=== PATIENT | male | born 1970 | race Caucasian/White ===

== ENCOUNTER → 2016-11-06 | Outpatient (CLI) | payer BC ==
[2016-11-06 14:42] LABS: BASOPHILS # (AUTO) 0.03 10*3/UL; BASOPHILS % (AUTO) 0.4 % (0-1); EOSINOPHILS # (AUTO) 0.17 10*3/UL; EOSINOPHILS % (AUTO) 2.1 % (0-8); HEMATOCRIT 38.4 % (42.0-52.0); HEMOGLOBIN 13.1 g/dL (14.0-18.0); LYMPHOCYTES # (AUTO) 0.67 10*3/uL; MEAN CORPUSCULAR HGB CONC 34.1 g/dL (33-37); MEAN CORPUSCULAR VOLUME 88.1 FL (80-90); MEAN PLATELET VOLUME 10.5 FL (7.4-12.2); MONOCYTES # (AUTO) 0.88 10*3/UL (0.3-0.8); MONOCYTES % (AUTO) 10.9 % (5-15); NEUTROPHILS % (AUTO) 77.6 % (50-80); RED BLOOD COUNT 4.36 10^6/uL (4.70-6.10)
[2016-11-06 14:45] LABS: MAGNESIUM 1.8 mg/dL (1.6-2.4); PLATELET MORPHOLOGY COMMENT NORMAL MORPHOLOGY (NORM); RBC MORPHOLOGY COMMENT NORMAL MORPHOLOGY (NORM); WBC MORPHOLOGY COMMENT NORMAL MORPHOLOGY (NORM)
[2016-11-06 14:45] LABS: BLOOD UREA NITROGEN 8 mg/dL (7-22); CALCIUM 9.5 mg/dL (8.7-10.7); CHOL/HDL RATIO 5.47 RATIO (0-4.0); EST GLOMERULAR FILTRATION > 60 (>60 ml/min/1.73m(2)); HDL CHOLESTEROL 36 mg/dL (40-150); SERUM ALBUMIN 4.2 g/dL (3.5-4.8); SERUM CHOLESTEROL 197 mg/dL (120-200)
[2016-11-06 15:09] LABS: LIPASE 3171 IU/L (23-300)
--- NOTE | 2016-11-07 11:46 | EKG ---
[facility] [place] Measurements Intervals [place] Rate: 77 P: 51 NE: 185 QRS: 32 QRSD: 94 T: 33 QT: 373 QTc: 405 Interpretive Statements SINUS RHYTHM [id number]
== END ==
LOC: EKG 11:57
PROVIDERS: ATTEND Physician Assistant Medical
DX: K86.0 Alcohol-induced chronic pancreatitis (principal); R07.9 Chest pain, unspecified; E55.9 Vitamin D deficiency, unspecified; E83.42 Hypomagnesemia; K21.0 Gastro-esophageal reflux disease with esophagitis; R51 Headache
CPT/HCPCS: 80053; 80061; 82150; 82306; 83690; 83735; 85025; 93005; 93010

== ENCOUNTER 2018-04-02 08:01 | Inpatient (IN) ==
[2018-04-02] MEDS ORDERED: Sodium Chloride 0.9% 1,000 ML PRIMARY IV ONE (08:21)
[2018-04-02] MEDS ORDERED: FAMOTIDINE 20 MG/2 ML VIAL IVP ONE (08:21)
[2018-04-02] MEDS ORDERED: ONDANSETRON 4 MG/2 ML VIAL IVP ONE (08:21)
[2018-04-02] MEDS ORDERED: HYDROmorphone 2 MG/1 ML IVP ONE (08:23)
--- NOTE | 2018-04-02 08:27 | EKG ---
[address] [address] Measurements Intervals [place] Rate: 71 P: 50 NC: 191 QRS: 41 QRSD: 83 T: 37 QT: 379 QTc: 402 Interpretive Statements SINUS RHYTHM Compared to ECG 11/06/2016 10:11:05 No significant changes Electronically Signed On 04-02-18 12:22:03 MST by Yaron Stovall [id number]
[2018-04-02 08:30] LABS: BASOPHILS # (AUTO) 0.02 10*3/UL; BASOPHILS % (AUTO) 0.2 % (0-1); EOSINOPHILS # (AUTO) 0.16 10*3/UL; EOSINOPHILS % (AUTO) 1.4 % (0-8); Hematocrit [HCT] 38.7 % (42.0-52.0); Hemoglobin [HGB] 13.4 g/dL (14.0-18.0); LYMPHOCYTES # (AUTO) 0.76 10*3/uL; MEAN CORPUSCULAR HEMOGLOBIN 30.5 PG (27-31); MEAN CORPUSCULAR HGB CONC 34.6 g/dL (33-37); MEAN CORPUSCULAR VOLUME 88.2 FL (80-90); MEAN PLATELET VOLUME 10.5 FL (7.4-12.2); MONOCYTES # (AUTO) 1.14 10*3/UL (0.3-0.8); NEUTROPHILS # (AUTO) 9.31 10*3/UL; NEUTROPHILS % (AUTO) 81.4 % (50-80); RED BLOOD COUNT 4.39 10^6/uL (4.70-6.10)
[2018-04-02 08:53] LABS: BLOOD UREA NITROGEN 11 mg/dL (7-22); BUN/CREATININE RATIO 15.71 (6-20); SERUM ALBUMIN 4.7 g/dL (3.5-4.8)
[2018-04-02 08:54] LABS: PLATELET MORPHOLOGY COMMENT NORMAL MORPHOLOGY (NORM); RBC MORPHOLOGY COMMENT NORMAL MORPHOLOGY (NORM); WBC MORPHOLOGY COMMENT NORMAL MORPHOLOGY (NORM)
[2018-04-02 09:07] LABS: LIPASE 1427 IU/L (23-300)
--- NOTE | 2018-04-02 09:39 | PDOC ---
Abdomen/Flank HPI - General Chief Complaint: Abdomen Pain Stated Complaint: abd pain/ vomiting Date Seen by Provider: 04/02/18 Time Seen by Provider: 08:15 Source: POSITIVE: Patient Exam Limitations: POSITIVE: No limitations Nurse's Notes Reviewed & Considered: Yes - History of Present Illness Initial Comments: The patient is a 47-year-old male who presents to the emergency room with a five-day history of diffuse abdominal pain and vomiting. He states he feels "dehydrated". Patient had arthroscopic surgery to his right knee 5 days ago and states that his symptoms began shortly thereafter. No known fevers. No hematemesis. No melena or hematochezia. No dysuria or hematuria. Patient states that he has a history of recurring pancreatitis and has had "pancreatic stones" removed by ERCP. He states that he "drinks a few times a week with meals". He has had pancreatic stenting procedures in the past. No fevers or c hills. He states his present pain is similar to what he is had with his previous episodes pancreatitis. He does state he has some radiation of his discomfort into his chest. Body Location Affected: REPORTS: Chest, Abdomen Timing: REPORTS: Constant Duration: >24 hours (Reportedly 5 days) Severity: Moderate Quality: REPORTS: "Pain" Abdominal Pain Onset Location: REPORTS: Generalized abdomen Abdominal Pain Radiation: REPORTS: Chest. DENIES: No radiation Context: REPORTS: Other (Patient reports onset of his pain was following arthroscopic surgery of his right knee) Modifying Factors: improves with: Vomiting ("Dry heaves") Associated Symptoms: REPORTS: Nausea, Vomiting, Other (Poorly localized diffuse abdominal pain) Similar Symptoms Previously: Yes (as above) Recent Care Received: REPORTS: Recently Seen, Treated by MD, Surgery (As above) Any Prior Injuries Related to Current Complaint?: No - Patient Home Medications Home Medications: Home Medications Lipase/Protease/Amylase [Zenpep Dr 20,000 Unit Capsule] 2 cap PO TID #180 cap 11/06/16 Omeprazole 1 cap PO BID cap 11/06/16 colchicine 0.6 mg capsule 0.6 mg PO BID #60 cap 05/07/17 indomethacin 50 mg capsule 50 mg PO BID #60 cap 05/07/17 HYDROcodone/APAP 7.5/325 Tab [[place] 7.5/325 Tab] 1 - 2 tab PO Q4H PRN #40 tab 03/27/18 - Patient Allergies Allergies/Adverse Reactions: Allergies Allergy/AdvReac Type Severity Reaction Status Date / Time No Known Allergies Allergy Verified 04/02/18 08:57 Past Medical History - heen HEENT History: Denies History, Other (please comment) Additional HEENT History: glassess Cardiovascular History: Denies History, Hyperlipidemia Respiratory History: Denies History Gastrointestinal History: Pancreatitis, Other (please comment) Additional Gastrointestinal History: Problems with GI after pancreatitis. LUCERO ESOPHAGUS Genitourinary History: Denies History Endocrine History: Denies History Musculoskeletal History: Arthritis, Gout Prosthesis or Implant: Yes (metal plate to right wrist) Neurological History: Migraines Blood Disorders: Denies History Psychiatric History: Denies History, Anxiety Disorders History of Sexually Transmitted Diseases: No Cancer History: Skin, Other (please comment) In Past Year Been Physically Harmed or Verbally Threatened: No History of MDRO: No History of Other Communicable Diseases: No Tobacco Use: Former Smoker In the Past 12 Months, Have Used or Abuse Any Substance: None Previous Surgical History: Yes Type / Date of Surgery: Vasectomy. Colonoscopy. Right wrist. RIGHT KNEE SCOPE. PLACEMENT OF STENT IN PANCREATIC DUCT Anesthesia Reactions: No Malignant Hyperthermia: No Significant Family History: Heart disease, Cancer, Diabetes, Hypertension, Other (please comment) Additional Family History: Colon, Breast CA. Depression. Migraine Past Medical History Reviewed: Reviewed - No Changes ROS - Limitations ROS Limitations: No Limitations Constitution: REPORTS: Denies Symptoms Cardiovascular: REPORTS: Denies Cardiac Symptoms Respiratory: REPORTS: Denies Resp Symptoms Neurological: REPORTS: Denies Neuro Symptoms Gastrointestinal: REPORTS: Abdominal Pain, Nausea, Vomitting Endocrine: REPORTS: Denies Symptoms Musculoskeletal: REPORTS: Denies MS Symptoms Genitourinary: REPORTS: Denies Symptoms Eyes: REPORTS: Denies Symptoms ENT: REPORTS: Denies Symptoms Skin: REPORTS: Denies Skin Symptoms Lympathic: REPORTS: Denies Lympathic Symptoms Immunologic: POSITIVE: Denies Symptoms Psychiatric: POSITIVE: Denies Psych Symptoms Abdominal/Flank Pain PE - General Appearance General Appearance: POSITIVE: Alert, Cooperative, No Acute Distress, No Evidence of Trauma - HEENT HEENT: POSITIVE: Head Inspection Nml, Eyes Inspection Nml, Ears Inspection Nml, Nose Inspection Nml, Oral/Dental Inspect. Nml, Pharynx Inspect. Nml, PERRL, EOMI - Neck Neck: POSITIVE: Normal Inspection, No Apparent Injury - Respiratory Respiratory: POSITIVE: No Respiratory Distress, Breath Sounds Normal, Chest Non- Tender - Cardiovascular Cardiovascular: POSITIVE: Regular Rate and Rhythm, Heart Sounds Normal, Equal Pulses, Strong Pulses Peripheral Pulses: Radial (R): 2+, Radial (L): 2+ - Abdomen Abdomen: No Splenomegaly: (All Quadrants), No Hepatomegaly: (All Quadrants), No Guarding: (All Quadrants), No Rebound: (All Quadrants), No Palpable Pulse: (All Quadrants), No Palpabale Mass: (All Quadrants), No Distention: (All Quadrants), No Rigidity: (All Quadrants), Tenderness Noted: (RUQ), (LUQ), (RLQ), (LLQ), Hypoactive Bowel Sounds: (RUQ), (LUQ), (RLQ), (LLQ) Additional Abdominal Details: Abdominal examination shows bowel sounds are present, but hypoactive. Patient complains of pain on palpation diffusely over the abdomen with no localization. No masses, organomegaly or rebound. - Back Back: POSITIVE: Normal Inspection. 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 Cisse at 0945 Lab Results Reviewed by Me: Yes (amylase and lipase elevated; troponin negative; UA pending) CBC and BMP: 04/02/18 08:25 04/02/18 08:25 Lab Results:: Laboratory Results 04/02/18 04/02/18 04/02/18 08:25 08:25 08:25 WBC 11.42 H RBC 4.39 L Hgb 13.4 L Hct 38.7 L MCV 88.2 MCH 30.5 MCHC 34.6 RDW Std Deviation 40.2 RDW Coeff of Jose 12.8 Plt Count 176 MPV 10.5 Immature Gran % (Auto) 0.3 Neut % (Auto) 81.4 H Lymph % (Auto) 6.7 L Atkinson % (Auto) 10.0 Eos % (Auto) 1.4 Baso % (Auto) 0.2 Immature Gran # (Auto) 0.03 Neut # (Auto) 9.31 Lymph # (Auto) 0.76 Atkinson # (Auto) 1.14 H Eos # (Auto) 0.16 Baso # (Auto) 0.02 WBC Morphology Comment Normal morphology Plt Morphology Comment Normal morphology RBC Morph Comment Normal morphology Sodium Potassium Chloride Carbon Dioxide Anion Gap BUN Creatinine Estimated GFR BUN/Creatinine Ratio Glucose Calculated Osmolality Calcium Total Bilirubin AST ALT Alkaline Phosphatase Troponin I < 0.012 C-Reactive Protein 5.9 H Total Protein Albumin Globulin Albumin/Globulin Ratio Amylase Lipase 04/02/18 08:25 WBC RBC Hgb Hct MCV MCH MCHC RDW Std Deviation RDW Coeff of Jose Plt Count MPV Immature Gran % (Auto) Neut % (Auto) Lymph % (Auto) Atkinson % (Auto) Eos % (Auto) Baso % (Auto) Immature Gran # (Auto) Neut # (Auto) Lymph # (Auto) Atkinson # (Auto) Eos # (Auto) Baso # (Auto) WBC Morphology Comment Plt Morphology Comment RBC Morph Comment Sodium 132 L Potassium 4.2 Chloride 94 L Carbon Dioxide 28 Anion Gap 10 BUN 11 Creatinine 0.7 Estimated GFR > 60 BUN/Creatinine Ratio 15.71 Glucose 195 H Calculated Osmolality 277.0 Calcium 9.5 Total Bilirubin 0.7 AST 34 ALT 24 Alkaline Phosphatase 84 Troponin I C-Reactive Protein Total Protein 8.3 H Albumin 4.7 Globulin 3.6 Albumin/Globulin Ratio 1.30 Amylase 114 H Lipase 1427 H* EKG Interpreted/Reviewed By Me:: Yes (normal) EKG Interpretation:: POSITIVE: Normal Sinus Rhythm, Normal Rate, Normal Intervals, Normal [place], Normal QRS, Abnormal EKG - Patient's Progress Pain Medication Addressed: POSITIVE: Yes (Patient medicated with Dilaudid 2 mg IV and was also given famotidine and Zofran IV and was hydrated. Upon reevaluation at 0930, patient states he feels much better knees no longer nauseated) Re-examine Time: 09:30 Re-Examine Comment: Patient states his pain is much less after hydration with normal saline and medication with 2 mg of Dilaudid, famotidine and Zofran IV. Patient has not yet had his CT scan of the abdomen and pelvis with IV contrast and urinalysis is pending. Care transferred at [address] Cisse, who comes on duty at 0900 Status: POSITIVE: Improved, Re-Examined - Consult Counseled: POSITIVE: Patient, RE: Lab Results, RE: DX, RE: Need for F/U Patient Care Time - Estimated PCT Patient Care Time (In Minutes): 45 Vital Signs - Recent Vital Signs Vital Signs: Vital Signs (Last 8 hours) Temp Pulse Resp BP Pulse Ox 04/02/18 08:22 97.9 F 86 20 144/100 97 - VS Reviewed Vital Signs Reviewed: Yes Discharge Clinical Impression: Abdominal pain Discharge Disposition: Other (Care transferred to Dr. Cisse [id number]) Condition: Fair Follow Up With: PRERNA GERBER [Primary Care Provider] - Care Transferred To: Dr. Cisse at 0930
[2018-04-02 10:18] LABS: BILIRUBIN,URINE NEGATIVE (NEG); CLARITY,URINE CLEAR (CLEAR); COLOR,URINE YELLOW (Y); GLUCOSE, URINE (UA) NEGATIVE (NEG); PH,URINE 6.5 (5.0-8.5); PROTEIN,URINE NEGATIVE (NEG); UROBILINOGEN,URINE 0.2 EU/dL (0.2)
[2018-04-02 10:19] LABS: OCCULT BLOOD,URINE TRACE (NEG)
[2018-04-02 10:35] LABS: RBC,URINE 0 /hpf; URINE SAMPLE TYPE CLEAN CATCH URINE; WBC,URINE 0
--- NOTE | 2018-04-02 10:42 | DI ---
CT Abdomen/Pelvis W Contrast 04/02/2018 8:23 AM History: [facility] [place] Abdominal Pain Comparison: None. Technique: Imaging was performed with a multi-detector CT scanner. Data acquisition was obtained from the dome of the diaphragm through the pubic symphysis without oral contrast and after the uneventful administration of 75 mL of Isovue intravenous contrast material. Multiplanar reformations were perfo rmed. Findings: There is moderate pancreatic edema and peripancreatic fluid, consistent with acute pancreat itis. There is a 1.2 x 2.7 x 1.1 cm fluid collection in the pancreatic parenchyma. Differential consi derations include a dilated pancreatic duct versus pseudocyst. There are multiple coarse calcificatio ns in the pancreatic parenchyma with atrophy of the tail. These findings are commonly associated with chronic pancreatitis. Vascular structures are grossly intact There is normal CT appearance of the liver, gallbladder, adrenal glands, spleen, and kidneys. Hollow viscus organs demonstrate normal course and caliber. The appendix is unremarkable. There is no free i ntraperitoneal air or fluid. There are shotty upper mesenteric lymph nodes, not pathologically enlarg ed by CT size criteria. Vascular structures are intact with scattered atheromatous calcifications. Th ere is no inguinal or abdominal wall hernia. The lung bases are notable for bibasilar atelectasis without focal consolidation, pleural effusion, o r pneumothorax. There is a 4 mm pulmonary nodule in the anterior right upper lobe on series 2 image 1 . The heart size is within normal limits without pericardial effusion. The osseous structures are within normal limits for the patient's age with multilevel degenerative en dplate changes and bilateral unfused L1 transverse processes. Impression: 1. There is evidence of acute on chronic pancreatitis. A fluid collection within the pancreatic paren chyma may represent a dilated pancreatic duct versus pseudocyst. 2. There are shotty upper mesenteric lymph nodes, most likely reactive related to the acute pancreati tis. 3. There is a 4 mm pulmonary nodule in the right upper lobe. Fleischner Society 2017 guidelines for m anagement of incidentally detected pulmonary nodules is as follows: Single solid lung nodule less than 6 mm: Low risk: No routine follow-up. High risk: Optional CT at 12 months.
--- NOTE | 2018-04-02 11:24 | PDOC ---
HPI - History of Present Illness History of Present Illness: The patient is a 47-year-old male who presents to the emergency room with a five-day history of abdominal pain nausea /vomiting. he feels . Patient had arthroscopic surgery to his right knee 5 days ago and states that his symptoms began shortly after. had multiple episosedes of pancreatitis and was treated at the [facility] for it ,including previous stents. dilaudid really worked well for his pain Past Medical History Medical History: pancreatitis with stents Surgical History: R knee scope Tobacco Use: Former Smoker In the Past 12 Months, Have Used or Abuse Any of the Following Substance: None Alcohol Use: Rarely Medication / Allergies Home Medications: Home Medications Medication Instructions Recorded Confirmed Type Lipase/Protease/Amylase [Zenpep Dr 2 cap PO TID #180 cap 11/06/16 04/02/18 Rx 20,000 Unit Capsule] Omeprazole 1 cap PO BID cap 11/06/16 04/02/18 History colchicine 0.6 mg capsule 0.6 mg PO BID #60 cap 05/07/17 04/02/18 Rx indomethacin 50 mg capsule 50 mg PO BID #60 cap 05/07/17 04/02/18 Rx HYDROcodone/APAP 7.5/325 Tab 1 - 2 tab PO Q4H PRN #40 tab 03/27/18 04/02/18 Rx [[place] 7.5/325 Tab] Allergies/Adverse Reactions: Allergies Allergy/AdvReac Type Severity Reaction Status Date / Time No Known Allergies Allergy Verified 04/02/18 08:57 Review of Systems - Review of Systems All Systems: Reviewed & No Additional Complaints Except as Stated - Respiratory Respiratory: DENIES: Negative System Review, Cough, Sputum, Dyspnea At Rest, Dyspnea with Exertion, Pleuritic Pain, Hemoptysis, Wheezing, Other, See HPI - Cardiovascular Cardiovascular: DENIES: Negative System Review, Chest Pain, Edema, Syncope, Palpitations, Orthopnea, Paroxysmal Nocturnal Dyspnea, Other, See HPI - Gastrointestinal Gastrointestinal / Abdominal: REPORTS: Nausea, Vomiting, Abdominal Pain - Genitourinary Genitourinary: DENIES: Negative System Review, Pain, Burning, Hematuria, Incontinence, Urgency, Hesitant Stream, Decreased Stream, Nocutria, Discharge, Sexual Dysfunction, Other, See HPI Exam - Vitals Vital Signs: Vital Signs Temperature 97.9 F Temperature Source Temporal Artery Scan Pulse Rate [Pulse Oximeter 86 Right] Respiratory Rate 20 Blood Pressure [Left Arm] 144/100 Pulse Ox 97 Oxygen Delivery Method Room Air Height 5 ft 5 in Weight 155 lb - General General Appearance: No Acute Distress, Cooperative - Head Head Exam: Normal Inspection, Normocephalic, Atraumatic - Eye Eye Exam: POSITIVE: Normal Appearance, PERRL, EOMI, No Scleral Icterus - Respiratory Respiratory Exam: POSITIVE: Clear to Auscultation - Bilaterally, Breathing Non Labored, Normal To Percussion, Normal to Percussion and Palpation - Cardiovascular Cardiovascular Exam: POSITIVE: RRR, No Murmur, No Clicks, No Gallops, No Rubs, PMI Non-Displaced - GI/Abdominal GI/Abdominal Exam: POSITIVE: Soft Additional GI/Abdominal Exam Details: llq pain mild Results - Labs CBC and BMP: 04/02/18 08:25 04/02/18 08:25 Assessment and Plan - Patient Problems (1) Pancreatitis Current Visit: No Status: Chronic Comment: iv fluids ,iv dilaudid/npo MRI further plan according to results Code(s): K85.90 - Acute pancreatitis without necrosis or infection, unspecified
[2018-04-02] MEDS ORDERED: CALCIUM CARBONATE 500 MG (TUMS) CHEWABLE TABLET PO PRN (12:21)
[2018-04-02] MEDS ORDERED: LIDOCAINE W/ SODIUM BICARB 0.5 ML SYR SUBD PRN (12:21)
[2018-04-02] MEDS ORDERED: Lactated Ringers 1,000 ML PRIMARY IV SCH (12:21)
[2018-04-02] MEDS ORDERED: HYDROmorphone 2 MG/1 ML IVP PRN (12:21)
[2018-04-02] MEDS ORDERED: DOCUSATE 100 MG CAPSULE PO PRN (12:21)
[2018-04-02] MEDS ORDERED: ONDANSETRON 4 MG/2 ML VIAL IVP PRN (12:21)
--- NOTE | 2018-04-02 13:17 | DI ---
MRI Abdomen WO Contrast 04/02/2018 12:06 PM History: [facility] [place] ^N ^abd pain Technique: Multiplanar multi-sequential imaging of the abdomen was performed to include MRCP sequence s. Comparison: CT abdomen/pelvis from earlier the same day. Findings: Normal liver size and contour without mass. Signal dropout on opposed phase imaging is consistent wit h diffuse hepatic steatosis. Multiple filling defects in the dependent gallbladder consistent with gallstones. There is no gallbla dder wall thickening or pericholecystic fluid. The common bile duct is dilated at 8 mm with a 6 mm fi lling defect at the level of the ampulla. The cystic duct is within normal limits. Normal andreas hepat is. There is peripancreatic edema and fluid without formed fluid collection. The pancreatic duct is dilat ed with a "[place] lakes" morphology. The most dilated segment in the body is approximately 1.2 cm i n diameter and contains multiple filling defects, concerning for refluxed gallstones. Calcifications are noted in the pancreatic parenchyma. The distal pancreas is atrophic. Normal splenic size and contour. No masses. Normal adrenal glands. Normal right kidney size and contour. No masses, cysts, or hydronephrosis. Normal perinephric space. Normal left kidney size and contour. No masses, cysts, or hydronephrosis. Normal perinephric space. Normal abdominal aorta. Normal flow voids of the peripancreatic vessels without evidence of thrombosi s. Normal retroperitoneum without abnormally enlarged lymphadenopathy or inflammation. There is moderat e edema in the upper mesentery with several shotty lymph nodes, most likely reactive. No ascites. Normal abdominal wall structures with no demonstrated hernias. The lung bases are clear. Heart size i s within normal limits without pericardial effusion. Impression: 1. There is evidence of acute on chronic pancreatitis. The pancreatic duct is dilated up to 1.2 cm in the body, corresponding with the fluid collection noted on the recent CT. There are multiple stones in the duct At this level. This raises concern for refluxed gallstones. 2. Cholelithiasis. The common bile duct is dilated at 8 mm with a 6 mm filling defect at the level of the ampulla, concerning for a gallstone. 3. Edema and shotty lymph nodes in the upper mesentery, most likely reactive. 4. Diffuse hepatic steatosis. These findings were discussed telephonically with Dr. Blue of the internal medicine department at 131 5 hrs on the day of the exam.
--- NOTE | 2018-04-02 14:17 | DCSUMMARY ---
Hospitalization Summary Hospital Course: Please see my HPI admit and discharge within same day Exam - Vitals Vital Signs: Vital Signs Temperature 97.4 F Temperature Source Oral Pulse Rate [Pulse Oximeter 76 Right] Pulse Rate 57 Respiratory Rate 16 Blood Pressure [Right Arm] 111/73 Blood Pressure [Left Arm] 144/100 Blood Pressure 114/86 Pulse Ox 92 Oxygen Delivery Method Room Air Height 5 ft 5 in Weight 155 lb Patient Problems - Patient Problem List (1) Pancreatitis Current Visit: No Status: Chronic Code(s): K85.90 - Acute pancreatitis without necrosis or infection, unspecified Category: Medical
--- NOTE | 2018-04-02 14:33 | PDOC ---
Transfer of Care - Care Accepted Time Care Transferred: 09:15 Report from Transferring Physician Received: Yes (Dr. Henderson) MDM / ED Course: The patient is a 47-year-old male who had presented to the emergency department with a for 5 day history of generalized abdominal pain, nausea and vomiting. He has a history of recurrent pancreatitis and has had multiple procedures related to this in [place], the last one being in 2011. Shortly after having had a knee scope last week he had onset of current abdominal pain, nausea and vomiting. Please refer to Dr. Henderson's note for details of his initial presentation. The patient had been treated with Dilaudid as well as Zofran and a fluid bolus. By the time of my reevaluation the patient's pain was significantly improved and he was feeling better. His blood work had revealed a mildly elevated white count as well as an elevated lipase at 1400. His liver enzymes were all normal. CT scan of the abdomen and pelvis was still pending at the time care was transferred. Home Medications: Home Medications Lipase/Protease/Amylase [Zenpep Dr 20,000 Unit Capsule] 2 cap PO TID #180 cap 11/06/16 Omeprazole 1 cap PO BID cap 11/06/16 colchicine 0.6 mg capsule 0.6 mg PO BID #60 cap 05/07/17 indomethacin 50 mg capsule 50 mg PO BID #60 cap 05/07/17 HYDROcodone/APAP 7.5/325 Tab [[place] 7.5/325 Tab] 1 - 2 tab PO Q4H PRN #40 tab 03/27/18 Allergies/Adverse Reactions: Allergies No Known Allergies Allergy (Verified 04/02/18 08:57) Vital Signs Reviewed: Yes Nurse's Notes Reviewed & Considered: Yes - Pending Patient Care Items Pending Patient Care Items: POSITIVE: CT / MRI Results - Expected Patient Outcome Expected Disposition: POSITIVE: Admit IP - Re-Evaluation of Patient Disposition of Patient: POSITIVE: Admitted Counseled: POSITIVE: Patient, Family, RE: Lab Results, RE: Radiology Results, RE: DX Pending Test Results Documented: Yes - Results Reviewed Lab Results Reviewed by Me: Yes Lab Results: Laboratory Results 04/02/18 04/02/18 04/02/18 08:25 08:25 08:25 WBC 11.42 H RBC 4.39 L Hgb 13.4 L Hct 38.7 L MCV 88.2 MCH 30.5 MCHC 34.6 RDW Std Deviation 40.2 RDW Coeff of Jose 12.8 Plt Count 176 MPV 10.5 Immature Gran % (Auto) 0.3 Neut % (Auto) 81.4 H Lymph % (Auto) 6.7 L [place] % (Auto) 10.0 Eos % (Auto) 1.4 Baso % (Auto) 0.2 Immature Gran # (Auto) 0.03 Neut # (Auto) 9.31 Lymph # (Auto) 0.76 [place] # (Auto) 1.14 H Eos # (Auto) 0.16 Baso # (Auto) 0.02 WBC Morphology Comment Normal morphology Plt Morphology Comment Normal morphology RBC Morph Comment Normal morphology Sodium Potassium Chloride Carbon Dioxide Anion Gap BUN Creatinine Estimated GFR BUN/Creatinine Ratio Glucose Calculated Osmolality Calcium Total Bilirubin AST ALT Alkaline Phosphatase Troponin I < 0.012 C-Reactive Protein 5.9 H Total Protein Albumin Globulin Albumin/Globulin Ratio Amylase Lipase Ur Collection Type Urine Color Urine Clarity Urine pH Ur Specific [place] Urine Protein Urine Glucose (UA) Urine Ketones Urine Occult Blood Urine Nitrate Urine Bilirubin Urine Urobilinogen Ur Leukocyte Esterase Urine RBC Urine WBC Ur Squamous Epith Cells Ur Renal Epithelial Cell Urine Crystals Urine Bacteria Urine Casts Urine Mucus Urine Trichomonas Urine Yeast Ur Culture Indicated? 04/02/18 04/02/18 08:25 10:13 WBC RBC Hgb Hct MCV MCH MCHC RDW Std Deviation RDW Coeff of Jose Plt Count MPV Immature Gran % (Auto) Neut % (Auto) Lymph % (Auto) [place] % (Auto) Eos % (Auto) Baso % (Auto) Immature Gran # (Auto) Neut # (Auto) Lymph # (Auto) [place] # (Auto) Eos # (Auto) Baso # (Auto) WBC Morphology Comment Plt Morphology Comment RBC Morph Comment Sodium 132 L Potassium 4.2 Chloride 94 L Carbon Dioxide 28 Anion Gap 10 BUN 11 Creatinine 0.7 Estimated GFR > 60 BUN/Creatinine Ratio 15.71 Glucose 195 H Calculated Osmolality 277.0 Calcium 9.5 Total Bilirubin 0.7 AST 34 ALT 24 Alkaline Phosphatase 84 Troponin I C-Reactive Protein Total Protein 8.3 H Albumin 4.7 Globulin 3.6 Albumin/Globulin Ratio 1.30 Amylase 114 H Lipase 1427 H* Ur Collection Type Clean catch urine Urine Color Yellow Urine Clarity Clear Urine pH 6.5 Ur Specific [place] 1.017 Urine Protein Negative Urine Glucose (UA) Negative Urine Ketones Negative Urine Occult Blood Trace H Urine Nitrate Negative Urine Bilirubin Negative Urine Urobilinogen 0.2 Ur Leukocyte Esterase Negative Urine RBC 0 Urine WBC 0 Ur Squamous Epith Cells None Ur Renal Epithelial Cell None Urine Crystals None Urine Bacteria None Urine Casts None Urine Mucus None Urine Trichomonas None Urine Yeast None Ur Culture Indicated? Culture not set EKG Interpreted/Reviewed By Me:: Yes EKG Interpretation:: POSITIVE: Normal Sinus Rhythm, Normal Rate, Normal QRS, Normal ST/T - Consult Consult (If Yes, Name of Consulting MD & Time Called): Yes (Dr. Blue) Recommendations:: The patient's CT scan reveals evidence of acute pancreatitis as well as chronic pancreatitis. He also has a small fluid collection within the pancreas which could be a dilated duct versus pseudocyst per radiologist. The lab and CT findings were discussed with the patient. The patient was subsequently discussed with Dr. Blue who has agreed to admit the patient for further care. The patient is in agreement with this plan. Patient Care Time - Estimated PCT Patient Care Time (In Minutes): 20 Vital Signs - Recent Vital Signs Vital Signs: Vital Signs (Last 8 hours) Temp Pulse Pulse Resp BP BP BP 04/02/18 12:55 97.4 F 76 16 111/73 04/02/18 12:46 97.7 F 57 L 15 114/86 04/02/18 12:21 97.9 F 86 20 144/100 04/02/18 08:22 97.9 F 86 20 144/100 Pulse Ox 04/02/18 12:55 95 04/02/18 12:46 95 04/02/18 12:21 97 04/02/18 08:22 97 - VS Reviewed Vital Signs Reviewed: Yes Discharge Clinical Impression: Abdominal pain, Pancreatitis Discharge Disposition: Admit to Inpatient Condition: Fair Date Decision to Admit to Inpatient: 04/02/18 Time Decision to Admit to Inpatient: 10:30
[2018-04-02] MEDS ORDERED: HEPARIN 5000 UNIT/1 ML SUBCUT SCH (15:00)
[2018-04-02] MEDS ORDERED: LIPASE PO SCH (15:00)
[2018-04-02] MEDS ORDERED: PROTEASE PO SCH (15:00)
[2018-04-02] MEDS ORDERED: AMYLASE PO SCH (15:00)
== END 2018-04-02 18:06 | disposition short-term general hospital (02) | DRG 440 ==
LOC: ER 08:01 → MED/SURG 12:18
PROVIDERS: ADMIT Internal Medicine; ATTEND Internal Medicine